=== PATIENT | male | born 1985 | race Caucasian/White ===

== ENCOUNTER 2019-08-15 06:27 | Day surgery (SDC) | payer BC ==
[2019-08-10 10:37] VITALS: BMI 39.5
[~2019-08-15 06:27] MED LIST: DEXAMETHASONE SOD PHOSPHATE 10 MG/ML 1 ML VIAL IV ONE; FAMOTIDINE 20 MG/2 ML VIAL IV ONE; HYDROmorphone 0.5 MG/0.5 ML SYRINGE IVP PRN; LACTATED RINGERS 1,000 ML IV SCH; LIDOCAINE 1% 20 ML VIAL (10MG/ML) FOR IV START INTRADERMA PRN; ONDANSETRON 4 MG/2 ML VIAL IVP ONE
[2019-08-15] MEDS ORDERED: MIDAZOLAM 2 MG/2 ML VIAL IVP ONE (07:13)
[2019-08-15] MEDS ORDERED: ROCURONIUM BROMIDE 10 MG/ML 10 ML VIAL IV ONE (07:22)
[2019-08-15] MEDS ORDERED: SUCCINYLCHOLINE CHLORIDE 100 MG/5 ML SYR IV ONE (07:22)
[2019-08-15] MEDS ORDERED: PROPOFOL 10 MG/ML 20 ML VIAL IV ONE (07:22)
[2019-08-15] MEDS ORDERED: GLYCOPYRROLATE 0.2 MG/ML 2 ML VIAL ONE (07:22)
[2019-08-15] MEDS ORDERED: DEXAMETHASONE SOD PHOS (MDV) 100 MG/10 ML VIAL ONE (07:22)
[2019-08-15] MEDS ORDERED: fentaNYL (PF) 50 MCG/ML 2 ML AMP ONE (07:22)
[2019-08-15] MEDS ORDERED: NEOSTIGMINE 1 MG/ML 10 ML VIAL ONE (07:22)
[2019-08-15] MEDS ORDERED: LIDOCAINE 1% INJ 10MG/ML (20 ML MDV) ONE (07:22)
--- NOTE | 2019-08-15 07:54 | P.OP ---
Date of Procedure: 08/15/19 Preoperative Diagnosis: Left oropharynx lesion Postoperative Diagnosis: Same, two left oropharynx lesions Procedure(s) Performed: Excision left oropharynx [id number] mm and 12 mm Anesthesia: ARTUROA Surgeon: Cornell Jernigan Estimated Blood Loss (ml): 1 Pathology: other (Left oropharynx lesion) Condition: stable Disposition: PACU Indications for Procedure: This 34-year-old white male who noticed a lesion in the back of throat on the left. This appears papillomatous in nature and is minimally symptomatic with foreign body sensation. Operative Findings: Pedunculated papillomatous lesion arising left anterior superior tonsillar pillar approximately 15 mm and left posterior tonsillar pillar papillomatous lesion 12 mm- this lesion was not visible until the more anterior one was excised and these were separate from each other in both excised grossly entirely Description of Procedure: The patient was brought in the operative suite and placed in a supine position. The patient underwent induction of general anesthesia with oral endotracheal intubation without difficulty. The patient was prepped and draped in usual aseptic fashion.. The oropharynx was inspected and the left anterior superior tonsillar pillar lesion was grasped with a curved Allis clamp and was excised from the surrounding tissue grossly entirely with needlepoint electrocautery. The base of the site was cauterized with suction cautery to obtain hemostasis. After this was completed there was another lesion behind this which was visible and therefore this was excised also in the same fashion. These were both excised grossly entirely with the base cauterized with suction cautery and excellent hemostasis was noted. No other lesions were noted on visual or palpable once infection. The patient was suctioned in oral gastric fashion and was allowed to emerge from general anesthesia having tolerated procedure well was extubated in the operating suite and transferred to postop recovery area in satisfactory condition
[2019-08-15 08:10] VITALS: TEMP 98.1
[2019-08-15 09:15] VITALS: BP 132/71; PULSE 82; RESP 16
== END 2019-08-15 09:45 | disposition home or self-care (01) ==
LOC: OR 06:27
PROVIDERS: ATTEND Otolaryngology
DX: D10.5 Benign neoplasm of other parts of oropharynx (principal); K21.9 Gastro-esophageal reflux disease without esophagitis
CPT/HCPCS: 88305; 42808; J2250; J1100 ×2; J2710; J2405; J2001; J3010; J0330; J2704